=== PATIENT | female | born 1955 | race African-American/Black ===

== ENCOUNTER 2017-06-18 09:20 | Emergency (ER) | payer OTHER ==
[2017-06-18 09:27] VITALS: BP 139/79; PULSE 73; TEMP 98; BMI 38.9
--- NOTE | 2017-06-18 10:41 | PDOC ---
Attending Attestation - Resident Resident Name: Gordon Gaxiola - ED Attending Attestation I have performed the following: I have examined & evaluated the patient, The case was reviewed & discussed with the resident, I agree w/resident's findings & plan, Exceptions are as noted - HPI HPI: 06/18/17 10:36 61y/o F on asa p/w bleeding to L ankle varicose vein. Had bleeding last week that resolved, this morning while in shower broke off the scab and began bleeding so presents for evaluation. no light-headedness/cp/syncope. - Physicial Exam PE: 06/18/17 10:39 VSS well appearing, smiling in stretcher, alert LLE: active bleeding from pinpoint lesion in medial L ankle varicosity. bandage in place, pt applied a rubber band turniquet around her ankle. NVI. scattered varicosities and hemangiomas in the lower extremities b/l - Medical Decision Making 06/18/17 10:40 Patient seen and evaluated with the resident. I agree with the overall evaluation, assessment, and management with the following summary of visit: 61y/o F with bleeding L ankle varicosity, HD stable. rubber band removed. surgicel pressure bandage applied with hemostasis. Will reassess. no indication for further workup at this time. 06/18/17 11:32 bleeding resolved with surgicel pressure bandage. re-applied, should maintain for 72h, understands return criteria. vascular referral
--- NOTE | 2017-06-18 11:34 | PDOC ---
History of Present Illness - General Stated Complaint: LACERATION Time Seen by Provider: 06/18/17 09:40 - History of Present Illness Initial Comments: 06/18/17 12:19 Patient is a 61 year old female with a history of HTN and DM who presents with a bleeding varicose vein. Patient reports that this morning while she was in the shower, she was scrubbing her left leg and a varicose vein began to bleed and would not stop bleeding prompting her presentation to the ED today. She wrapped it up with pressure to control the bleeding, however it has not clotted off yet. She reports that she is on Aspirin. Patient denies any numbness or tingling in her extremities or lightheadedness. Past History - Past Medical History Allergies/Adverse Reactions: Allergies Allergy/AdvReac Type Severity Reaction Status Date / Time No Known Allergies Allergy Verified 06/18/17 09:27 Home Medications: Ambulatory Orders NK [No Known Home Medication] 06/18/17 Diabetes: Yes HTN: Yes - Psycho/Social/Smoking Cessation Hx Suicidal Ideation: No Smoking History: Current every day smoker Number of Cigarettes Smoked Daily: 10 Information on smoking cessation initiated: No Review of Systems - Review of Systems Constitutional: No: Chills, Fever Respiratory: No: Cough, Shortness of Breath Cardiac (ROS): No: Chest Pain, Lightheadedness, Palpitations ABD/GI: No: Nausea, Vomiting : No: Burning, Dysuria Integumentary: No: Rash Neurological: No: Headache, Tingling *Physical Exam - Vital Signs Last Vital Signs Temp Pulse Resp BP Pulse Ox 98 F 73 18 139/79 96 06/18/17 09:23 06/18/17 09:23 06/18/17 09:23 06/18/17 09:23 06/18/17 09:23 - Physical Exam Comments: 06/18/17 12:25 General Appearance: Yes Nourished. No Apparent Distress HEENT: No Pharyngeal Erythema, Tonsillar Exudate, Tonsillar Erythema Respiratory/Chest: Lungs Clear, Normal Breath Sounds. No Crackles, Rales, Rhonchi, Wheezing Cardiovascular: Regular Rhythm, Regular Rate. No Murmur, Gallop/S3, Gallop/S4 Gastrointestinal/Abdominal: Normal Bowel Sounds, Soft. No Guarding, Rebound, Tenderness Extremity: Normal Capillary Refill, Actively bleeding varicose vein on the medial aspect of the left ankle. Pulses and sensation intact distally. Integumentary: Normal Color, Dry, Warm Neurologic: Fully Oriented, Alert, Normal Mood/Affect, Normal Response Medical Decision Making - Medical Decision Making 06/18/17 10:26 Patient is a 61 year old female with a history of HTN and DM who presents with a bleeding varicose vein. We will apply surgicell to the bleed and compression wrap with kerlex and reevaluate in 1 hour. Patient is stable and does not warrant labs at this time. 06/18/17 11:28 Patient was reevaluated and the bleed has been controlled successfully with surgicell. We will wrap her wound in kerlex and discussed with the patient management of the bleed and are recommendation to follow up with a vascular physician and the patient is agreeable to the plan. *DC/Admit/Observation/Transfer Diagnosis at time of Disposition: Varicose vein of leg - Discharge Dispostion Disposition: HOME Condition at time of disposition: Improved - Referrals Referrals: bAiodun Dumas MD [Staff Physician] - - Patient Instructions Printed Discharge Instructions: DI for Varicose Veins Additional Instructions: Please return to the ER if you experience concerning or worsening symptoms including worsening bleeding from your varicose vein. Please keep the dressing on your leg for 3 days and you may remove it on Saturday. You may use some water to take off the last bandage over the wound. If the wound bleeds, hold pressure on it for 30 minutes. If it continues to bleed after holding pressure, please return to the ER. Please follow up with our vascular physician. The number to call is included in your discharge paperwork. - Attestations Physician Attestion: 06/18/17 11:34 I, Dr. Gordon Gaxiola, attest that this document has been prepared under my direction and personally reviewed by me in its entirety. I further attest, that it accurately reflects all work, treatment, procedures and medical decision -making performed by me.
== END 2017-06-18 11:44 | disposition home or self-care (01) ==
LOC: JER 09:20
DX: I83.892 Varicose veins of left lower extremity with other complications (principal); I10 Essential (primary) hypertension; E11.9 Type 2 diabetes mellitus without complications; Z79.82 Long term (current) use of aspirin
CPT/HCPCS: 99281-25